=== PATIENT | female | born 1950 | race Caucasian/White ===

== ENCOUNTER 2018-11-26 10:20 | Outpatient (CLI) | payer MEDICARE ==
--- NOTE | 2018-12-03 16:20 | MMO ---
Bilateral MAMMO Bilat Screen [facility]. CLINICAL HISTORY: Patient is 68 years old and is seen for screening. The patient has the following family history of breast cancer: mother. The patient has a history of malignant (generic) at age 38. The patient has a history of right Mastectomy at age 38 - malignant. VIEWS: The views performed were: left craniocaudal with tomosynthesis and left mediolateral oblique with tomosynthesis. FILMS COMPARED: The present examination has been compared to a prior imaging study performed at [facility] on 01/06/2017. MAMMOGRAM FINDINGS: There are scattered fibroglandular densities. There are benign appearing calcifications seen in the left breast. There are also vascular calcifications. There are no suspicious masses, suspicious calcifications, or new areas of architectural distortion. IMPRESSION: THERE IS NO MAMMOGRAPHIC EVIDENCE OF MALIGNANCY. A ROUTINE FOLLOW-UP MAMMOGRAM IN 1 YEAR IS RECOMMENDED. THE RESULTS OF THIS EXAM WERE SENT TO THE PATIENT. ACR BI-RADS Category 2 - Benign finding MAMMOGRAPHY NOTE: 1. A negative mammogram report should not delay a biopsy if a dominant of clinically suspicious mass is present. 2. Approximately 10% to 15% of breast cancers are not detected by mammography. 3. Adenosis and dense breasts may obscure an underlying neoplasm.
== END 2018-11-26 10:21 | disposition home or self-care (01) ==
LOC: BICMAMMO 10:20
PROVIDERS: ATTEND Family Medicine
DX: Z12.31 Encounter for screening mammogram for malignant neoplasm of breast (principal); Z85.3 Personal history of malignant neoplasm of breast; Z90.11 Acquired absence of right breast and nipple; Z80.3 Family history of malignant neoplasm of breast
CPT/HCPCS: 77063; 77067

== ENCOUNTER 2019-11-29 11:59 | Outpatient (CLI) | payer MEDICARE ==
--- NOTE | 2019-11-29 14:08 | MMO ---
Bilateral MAMMO Bilat Screen [facility]. CLINICAL HISTORY: Patient is 69 years old and is seen for screening. The patient has the following family history of breast cancer: mother. The patient has a history of malignant (generic) at age 38. The patient has a history of right Mastectomy at age 38 - malignant. VIEWS: The views performed were: bilateral craniocaudal with tomosynthesis and bilateral mediolateral oblique with tomosynthesis. FILMS COMPARED: The present examination has been compared to prior imaging studies performed at [facility] on 11/26/2018, and at [facility] on 01/06/2017. This study has been interpreted with the assistance of computer-aided detection. MAMMOGRAM FINDINGS: There are scattered fibroglandular densities. Benign calcifications are noted bilaterally. There are no suspicious masses, suspicious calcifications, or new areas of architectural distortion. IMPRESSION: THERE IS NO MAMMOGRAPHIC EVIDENCE OF MALIGNANCY. A ROUTINE FOLLOW-UP MAMMOGRAM IN 1 YEAR IS RECOMMENDED. THE RESULTS OF THIS EXAM WERE SENT TO THE PATIENT. ACR BI-RADS Category 2 - Benign finding MAMMOGRAPHY NOTE: 1. A negative mammogram report should not delay a biopsy if a dominant of clinically suspicious mass is present. 2. Approximately 10% to 15% of breast cancers are not detected by mammography. 3. Adenosis and dense breasts may obscure an underlying neoplasm. Reported by: ERIKA MARINO MD Electonically Signed: [id number]
== END 2019-11-29 12:00 | disposition home or self-care (01) ==
LOC: BICMAMMO 11:59
PROVIDERS: ATTEND Family Medicine
DX: Z12.31 Encounter for screening mammogram for malignant neoplasm of breast (principal); Z85.3 Personal history of malignant neoplasm of breast
CPT/HCPCS: 77063; 77067

== ENCOUNTER 2021-09-02 13:00 | Outpatient (CLI) | payer MEDICARE | END 2021-09-02 13:01 | disposition home or self-care (01) | LOC: BICMAMMO 13:00 | PROVIDERS: ATTEND Family Medicine | DX: Z12.31 Encounter for screening mammogram for malignant neoplasm of breast (principal); Z13.820 Encounter for screening for osteoporosis; Z90.11 Acquired absence of right breast and nipple; Z85.3 Personal history of malignant neoplasm of breast; Z80.3 Family history of malignant neoplasm of breast | CPT/HCPCS: 77063; 77067; 77080 ==

== ENCOUNTER 2023-02-16 14:05 | Outpatient (CLI) | payer MEDICARE | END 2023-02-16 14:06 | disposition home or self-care (01) | LOC: BICMAMMO 14:05 | PROVIDERS: ATTEND Family Medicine | DX: Z12.31 Encounter for screening mammogram for malignant neoplasm of breast (principal); Z80.3 Family history of malignant neoplasm of breast; Z85.3 Personal history of malignant neoplasm of breast; Z90.11 Acquired absence of right breast and nipple | CPT/HCPCS: 77063; 77067 ==

== ENCOUNTER 2023-02-27 10:17 | Outpatient (CLI) | payer MEDICARE ==
[2023-02-27 11:39] LABS: #Eosinphils 0.1 10x3/uL (0.0-0.5); #Monocytes 0.6 10x3/uL (0.0-1.1); #Neutrophils 3.5 10x3/uL (1.5-8.4); %Basophils 0.5 % (0.0-2.0); %Eosinophils 1.9 % (0.0-6.0); %Lymphocytes 32.7 % (18.0-47.0); %Monocytes 8.7 % (0.0-10.0); %Neutrophils 55.9 % (40.0-75.0); Hematocrit 37.9 % (34.9-44.5); Hemoglobin 12.7 g/dL (12.0-15.5); Mean Corpuscular HGB CONC 33.5 g/dL (32.0-36.0); Mean Corpuscular Hemoglobin 30.3 pg (27.0-33.0); Mean Corpuscular Volume 90.5 fl (81.6-98.3); Mean Platelet Volume 11.1 fl (7.4-10.4); Platelet Count 247 10x3/uL (150-450); RBC Distribution Width 13.6 % (11.5-14.5); Red Blood Cell (RBC) Count 4.19 10x6/uL (3.90-5.03); White Blood Cell (WBC) Count 6.3 10x3/uL (3.5-10.5)
[2023-02-27 12:11] LABS: Anion Gap 17 mmol/L (10-20); BUN (Urea Nitrogen) 19 mg/dL (9.8-20.1); Calc. Creatinine Clearance 0 mL/min (70-130); Carbon Dioxide 20 mmol/L (23-31); Chloride 105 mmol/L (98-107); Estimated GFR 69; Glucose 163 mg/dL (83-110); Potassium 4.6 mmol/L (3.5-5.1); Sodium 137 mmol/L (136-145)
== END 2023-02-27 10:18 | disposition home or self-care (01) ==
LOC: LABBT 10:17
PROVIDERS: ATTEND Surgery
DX: Z01.818 Encounter for other preprocedural examination (principal); K63.89 Other specified diseases of intestine
CPT/HCPCS: 80048; 83036; 85025; 93005; 93010

== ENCOUNTER 2023-02-27 10:30 | Inpatient (IN) | payer MEDICARE ==
[2023-02-27 10:56] VITALS: BMI 26.5
[2023-03-04] MEDS ORDERED: Midazolam HCl 2 mg/2 ml Vial ONE (09:03)
[2023-03-04] MEDS ORDERED: Bupivacaine PF 0.5% 30 ML VIAL ONE (09:03)
[2023-03-04] MEDS ORDERED: fentaNYL 50 mcg/mL 1 mL Vial ONE ×2 (09:03→13:03)
[2023-03-04] MEDS ORDERED: Sodium Chloride 0.9% 100 ML ONE (09:13)
[2023-03-04] MEDS ORDERED: cefOXitin 2 GM VIAL ONE (09:13)
[2023-03-04] MEDS ORDERED: fentaNYL PF 100 MCG/2 ML SYRINGE ONE (09:24)
[2023-03-04] MEDS ORDERED: PROPOFOL 200 MG/20 ML VIAL ONE (09:41)
[2023-03-04] MEDS ORDERED: NEOSTIGMINE 3 MG/3 ML SYR 3 MG/3 ML SYRINGE ONE (09:41)
[2023-03-04] MEDS ORDERED: Rocuronium Bromide 10 MG/ML (10ML VIAL) ONE (09:41)
[2023-03-04] MEDS ORDERED: Ondansetron PF 4 MG/2 ML Vial ONE (09:41)
[2023-03-04] MEDS ORDERED: Lidocaine 1% PF 5 ML VIAL ONE (09:41)
[2023-03-04] MEDS ORDERED: Glycopyrrolate 0.2 MG/ML 5 ML SYRINGE ONE (09:41)
[2023-03-04] MEDS ORDERED: PHENYLEPHRINE-NS 100 MCG/ML 10 ML SYRINGE ONE (09:41)
[2023-03-04] MEDS ORDERED: Bupivacaine HCl 0.5%/Epinephrine 1:200,000/PF 30 ml Vial ONE (09:41)
[2023-03-04] MEDS ORDERED: Insulin Regular 300 UNITS/3 ML VIAL ONE (12:50)
[2023-03-04] MEDS ORDERED: Promethazine HCl 25 MG/ML VIAL ONE (13:03)
[2023-03-04] MEDS ORDERED: HumaLOG 300 UNITS/3 ML VIAL SC PRN (14:26)
[2023-03-04] MEDS ORDERED: Dextrose 50% Abboject 50 ML SYRINGE SLOW IVP PRN (14:26)
[2023-03-04] MEDS ORDERED: Acetaminophen 325 MG TAB PO PRN (14:26)
[2023-03-04] MEDS ORDERED: Ondansetron PF 4 MG/2 ML Vial IVP PRN (14:26)
[2023-03-04] MEDS ORDERED: Ipratropium/Albuterol 3 ML NEB NEB PRN (14:26)
[2023-03-04] MEDS ORDERED: Glucagon 1 MG/ML KIT IM PRN (14:26)
[2023-03-04] MEDS ORDERED: Dextrose 5% in Water 1,000 ML IV PRN (14:26)
[2023-03-04] MEDS ORDERED: Promethazine HCl 25 MG/ML VIAL IM PRN (14:26)
[2023-03-04] MEDS ORDERED: hydrALAZINE 20 MG/ML VIAL SLOW IVP PRN (14:26)
[2023-03-04] MEDS ORDERED: fentaNYL 50 mcg/mL 1 mL Vial SLOW IVP PRN (14:43)
[2023-03-04] MEDS: Sodium Chloride 0.9% 1,000 ML IV SCH (14:53)
[2023-03-04] MEDS: Gabapentin 300 MG CAP PO SCH ×2 (15:32→20:16)
[2023-03-04] MEDS: cefOXitin Sodium 1 GM in Sodium Chloride 0.9% 100 ML IVPB SCH (18:21)
[2023-03-04] MEDS: Famotidine 20 MG TAB PO SCH (20:16)
[2023-03-04] MEDS: HYDROcodone/Acetaminophen 7.5/325 mg Tablet PO PRN (20:17)
[2023-03-04] MEDS: Famotidine/PF 20 mg/2ml Vial SLOW IVP SCH (20:18)
[2023-03-05] MEDS: Sodium Chloride 0.9% 1,000 ML IV SCH ×2 (00:29→08:49)
[2023-03-05] MEDS: cefOXitin Sodium 1 GM in Sodium Chloride 0.9% 100 ML IVPB SCH (00:29)
[2023-03-05 06:12] LABS: #Monocytes 0.7 thou/uL (0.11-0.59); #Neutrophils 4.8 thou/uL (1.40-6.50); %Basophils 0.1 % (0.0-1.0); %Eosinophils 0.6 % (0.0-10.0); %Lymphocytes 17.1 % (21.0-51.0); %Monocytes 10.5 % (0.0-10.0); %Neutrophils 71.3 % (42.0-75.0); Hematocrit 36.2 % (36.0-47.0); Hemoglobin 11.6 g/dL (12.0-16.0); Mean Corpuscular Hemoglobin 30.6 pg (27.0-31.0); Mean Corpuscular Volume 95.5 fl (78.0-98.0); Mean Platelet Volume 11.2 fL (7.4-10.4); Platelet Count 181 10x3/uL (130-400); RBC Distribution Width 13.7 % (11.5-14.5); Red Blood Cell (RBC) Count 3.79 mill/uL (4.20-5.40); White Blood Cell (WBC) Count 6.7 10x3/uL (4.8-10.8)
[2023-03-05] MEDS: HYDROcodone/Acetaminophen 7.5/325 mg Tablet PO PRN (06:16)
[2023-03-05 06:39] LABS: Anion Gap 12 mmol/L (10-20); Calc. Creatinine Clearance 52 mL/min (70-130); Calcium 9.1 mg/dL (7.8-10.44); Carbon Dioxide 18 mmol/L (23-31); Chloride 110 mmol/L (98-107); Estimated GFR 57; Potassium 4.5 mmol/L (3.5-5.1); Sodium 135 mmol/L (136-145)
[2023-03-05 06:43] LABS: BUN (Urea Nitrogen) 12 mg/dL (9.8-20.1); Glucose 157 mg/dL (83-110)
[2023-03-05] MEDS: Gabapentin 300 MG CAP PO SCH ×3 (08:48→21:09)
[2023-03-05] MEDS: valACYclovir 500 MG TAB PO SCH (08:48)
[2023-03-05] MEDS: Famotidine 20 MG TAB PO SCH (08:48)
[2023-03-05] MEDS: Famotidine/PF 20 mg/2ml Vial SLOW IVP SCH ×2 (10:05→21:09)
[2023-03-05] MEDS: Lisinopril 10 MG TAB PO SCH (10:06)
[2023-03-06] MEDS: Famotidine 20 MG TAB PO SCH ×2 (00:01→09:04)
[2023-03-06] MEDS: Lisinopril 10 MG TAB PO SCH (09:03)
[2023-03-06] MEDS: Gabapentin 300 MG CAP PO SCH (09:03)
[2023-03-06] MEDS: Famotidine/PF 20 mg/2ml Vial SLOW IVP SCH (09:05)
[2023-03-06] MEDS: valACYclovir 500 MG TAB PO SCH (09:12)
[2023-03-06 13:46] VITALS: BP 119/80; TEMP 98.2
== END 2023-03-06 14:10 | disposition home or self-care (01) | DRG 331 ==
LOC: SURG A 03-04 07:05 → SURG B 03-04 14:21
PROVIDERS: ADMIT Surgery; ATTEND Surgery
PROC: 0DBF4ZZ Excision of Right Large Intestine, Percutaneous Endoscopic Approach (ICD-10-PCS; principal; 2023-03-04)
PROC: 8E0W4CZ Robotic Assisted Procedure of Trunk Region, Percutaneous Endoscopic Approach (ICD-10-PCS; 2023-03-04)
DX: D49.0 Neoplasm of unspecified behavior of digestive system (principal); M19.90 Unspecified osteoarthritis, unspecified site; E11.9 Type 2 diabetes mellitus without complications
CPT/HCPCS: 36415; 36416; 80048; 85025; 88309; 88341; 88342; A4314; J0694; J1650; J1815; J2250; J2405; J2550; J2704; J3010; J3490; J7050; S0020; S0028

== ENCOUNTER 2024-02-18 14:06 | Outpatient (CLI) | payer MEDICARE | END 2024-02-18 14:07 | disposition home or self-care (01) | LOC: BICMAMMO 14:06 | PROVIDERS: ATTEND Family Medicine | DX: Z12.31 Encounter for screening mammogram for malignant neoplasm of breast (principal); Z80.3 Family history of malignant neoplasm of breast; Z85.3 Personal history of malignant neoplasm of breast; Z90.11 Acquired absence of right breast and nipple | CPT/HCPCS: 77063; 77067 ==

== ENCOUNTER 2024-12-27 08:26 | Outpatient (CLI) | payer MEDICARE | END 2024-12-27 08:27 | disposition home or self-care (01) | LOC: BICMAMMO 08:26 | PROVIDERS: ATTEND Family Medicine | DX: Z78.0 Asymptomatic menopausal state (principal) | CPT/HCPCS: 77080 ==

== ENCOUNTER 2025-02-22 13:23 | Outpatient (CLI) | payer MEDICARE | END 2025-02-22 13:24 | disposition home or self-care (01) | LOC: BICMAMMO 13:23 | PROVIDERS: ATTEND Family Medicine | DX: Z12.31 Encounter for screening mammogram for malignant neoplasm of breast (principal); Z80.3 Family history of malignant neoplasm of breast; Z85.038 Personal history of other malignant neoplasm of large intestine; Z90.11 Acquired absence of right breast and nipple; Z98.890 Other specified postprocedural states | CPT/HCPCS: 77063; 77067 ==